=== PATIENT | male | born 1975 | race Two or more races ===

== ENCOUNTER 2024-07-21 13:01 | Emergency (ER) | payer MEDICAID, OTHER ==
--- NOTE | 2024-07-21 13:51 | ED.PDOC ---
History of Present Illness HPI Comments Primo Chu is a 49-year-old male patient who presents to the ED with chief complaint of blurry vision from right eye and right-sided facial pain, associated with right sided facial edema, dizziness, nausea, chills and weak king maker on right hand which started approximately four days ago patient denies any recent trauma or any dental procedures (last dental procedure was approximately two years ago), he does have poor dental hygiene probably secondary to history of methamphetamine abuse. Denies palpitation, syncope, head trauma, chest pain, dyspnea, vomiting, diarrhea, constipation, bleeding, recent travel, sick contacts and other motor or sensory deficits. 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 Surgical history: Coronary angiography approximately 4-5 years with no intervention. Tooth extraction approximately two years, orchiectomy approximately six years ago Family history: Diabetes and hypertension mother and father. Heart disease in grandmother required open heart surgery. 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 Smokes cigarette disease approximately four cigarettes per day, approximately six pack- year history of smoking) occasionally vapes marijuana. Ex methamphetamine abuse, has stopped approximately six years ago. He currently drinks three beers a day. Allergies: Penicillin Home medication: Nitroglycerin. Does not recall other medication at this time Chief Complaint: Face pain Time Seen by MD: 13:31 Allergies: Coded Allergies: Penicillins (Unverified Allergy, Unknown, 07/21/24) Home Meds Active Scripts Ibuprofen Micronized (Ibuprofen) 400 Mg Tab, 400 MG PO TID PRN for 15 Days, #45 TAB Prov:SHAGGY BLANCAS RESIDENT 07/21/24 Amoxicillin & Pot Clavulanate (AUGMENTIN TABLET) 875 Mg Tb, 875 MG PO Q12HR for 10 Days, #20 TAB Prov:SHAGGY BLANCAS RESIDENT 07/21/24 Physical Exam General Appearance: Mild Distress, Normal HEENT: Eye Lid (R) (Edema and erythema), Pharynx Normal, TMs Normal Neck: Full Range of Motion, Non-Tender, Normal, Normal Inspection Respiratory: Chest Non-Tender, Lungs Clear, No Accessory Muscle Use, No Respiratory Distress, Normal Breath Sounds Cardiovascular: No Edema, No JVD, No Murmur, No Gallop, Normal Peripheral Pulses, Regular Rate/Rhythm Breast Exam: Deferred Gastrointestinal: No Organomegaly, Non Tender, No Pulsatile Mass, Normal Bowel Sounds, Soft Genitalia: Deferred Pelvic: Deferred Rectal: Deferred Extremities: No calf tenderness, Normal capillary refill, Normal inspection, Normal range of motion, Non-tender, No pedal edema, Other (Milder weaker king maker on right hand) Neurologic: Alert, bell maker II-XII nml as Tested, No Motor Deficits, Normal Affect, Normal Mood, No Sensory Deficits Cerebellar Function: Normal Reflexes: Normal Skin: Dry, Normal Color, Warm Lymphatic: No Adenopathy Was a procedure done? Was a procedure done?: No EKG EKG : Comments Sinus rhythm at 75 beats per minute flattened T-waves in lateral leads Differential Dx Considerations may include: Periorbital abscess, stroke, KS, arrhythmias, cellulitis, glaucoma, polysubstance abuse X-Ray, Labs, Meds, VS Vital Signs Date Time Temp Pulse Resp B/P (MAP) Pulse Ox O2 Delivery O2 Flow Rate FiO2 07/21/24 15:42 99.5 106 16 132/98 (109) 98 99.5 07/21/24 15:42 106 18 98 Room Air 07/21/24 13:34 14 97 Room Air* 0 21 Lab Test 07/21/24 13:48 Range/Units White Blood Count 9.7 4.4-10.8 10^3/uL Red Blood Count 4.75 4.5-5.90 10^6/uL Hemoglobin 12.4 L 13.5-17.5 g/dL Hematocrit 37.9 L 41.0-53.0 % Mean Corpuscular Volume 79.8 L 80.0-100.0 fL Mean Corpuscular Hemoglobin 26.1 L 28.0-32.0 pg Mean Corpuscular Hemoglobin Concent 32.7 32.0-36.0 g/dL Red Cell Distribution Width 17.7 H 11.8-14.3 % Platelet Count 216 140-450 10^3/uL Mean Platelet Volume 9.0 6.9-10.8 fL Neutrophils (%) (Auto) 84.3 H 37.0-80.0 % Lymphocytes (%) (Auto) 9.1 L 10.0-50.0 % Monocytes (%) (Auto) 5.0 0.0-12.0 % Eosinophils (%) (Auto) 0.9 0.0-7.0 % Basophils (%) (Auto) 0.7 0.0-2.0 % Neutrophils # (Auto) 8.2 1.6-8.6 10 ^3/uL Lymphocytes # (Auto) 0.9 0.4-5.4 10 ^3/uL Monocytes # (Auto) 0.5 0-1.3 10 ^3/uL Eosinophils # (Auto) 0.1 0-0.8 10 ^3/uL Basophils # (Auto) 0.1 0-0.2 10 ^3/uL Nucleated Red Blood Cells 0.1 % Prothrombin Time 11.0 9.3-11.8 sec Prothrombin Time INR 1.04 0.9-1.15 Activated Partial Thromboplast Time 30.5 24.5-34.5 SEC Sodium Level 138 136-145 mmol/L Potassium Level 3.6 3.5-5.1 mmol/L Chloride Level 104 98-107 mmol/L Carbon Dioxide Level 25 20-31 mmol/L Anion Gap 9 5-15 Blood Urea Nitrogen 11 9-23 mg/dL Creatinine 0.96 0.700-1.30 mg/dL Glomerular Filtration Rate Calc 98 >90 mL/min BUN/Creatinine Ratio 11.5 10.0-20.0 Serum Glucose 100 74-106 mg/dL Lactic Acid Level 1.3 0.4-2.0 mmol/L Calcium Level 10.1 8.7-10.4 mg/dL Phosphorus Level 2.5 2.4-5.1 mg/dL Magnesium Level 2.3 1.6-2.6 mg/dL Total Bilirubin 0.7 0.2-1.0 mg/dL Aspartate Amino Transferase (AST) 13 13-40 U/L Alanine Aminotransferase (ALT) 15 7-40 U/L Alkaline Phosphatase 95 46-116 U/L Total Protein 8.5 H 5.7-8.2 g/dL Albumin 4.9 H 3.2-4.8 g/dL Thyroid Stimulating Hormone (TSH) 4.56 0.55-4.78 uIU/mL Time of 1ST Reevaluation: 17:08 Reevaluation 1ST: Unchanged Patient Education/Counseling: Diagnosis, Treatment, Prognosis, Need For Follow Up (Dentist) Family Education/Counseling: Diagnosis, Treatment, Prognosis, Need For Follow Up (Dentist) Departure 1 Departure Time of Disposition: 17:09 Impression: Primary Impression: Periapical abscess Additional Impression: Cellulitis Disposition: HOME / SELF CARE / HOMELESS Condition: Stable Additional Instructions: Reviewed vital signs, laboratory workup, head and maxillofacial CT. Imaging shows periapical abscess (2.1x0.8 cm) in maxillary area associated with cellulitis. No periorbital abscess. We will indicate p.o. antibiotics (amoxicillin clavulanic acid 850 mg p.o. b.i.d. for 10 days) and anti- inflammatory medication (ibuprofen). Patient does not have dentist in the [facility], last time he saw a dentist was two years ago. Have discussed importance of reaching out to dentist, patient has Medicare and he will call to make an appointment to drain abscess. Patient hemodynamically stable, asymptomatic, in condition to be discharged home. Was granted under optimal medical therapy, gave her advice on healthy lifestyle habits, and follow up with PCP and dentist as outpatient for eventual drainage of abscess. e-Prescriptions Ibuprofen Micronized (Ibuprofen) 400 Mg Tab 400 MG PO TID PRN for 15 Days, #45 TAB Prov: SHAGGY BLANCAS RESIDENT 07/21/24 Amoxicillin & Pot Clavulanate (AUGMENTIN TABLET) 875 Mg Tb 875 MG PO Q12HR for 10 Days, #20 TAB Prov: SHAGGY BLANCAS RESIDENT 07/21/24 Critical Care Note Critical Care Time?: No Stability Stability form required: No Heart Score Heart Score: Heart Score Response (Comments) Value History N/A 0 EKG N/A 0 Age N/A 0 Risk Factors N/A 0 Troponin N/A 0 Total 0 SHAGGY BLANCAS RESIDENT Jul 21, 2024 13:51
[2024-07-21 14:25] LABS: Eosinophils # (auto) 0.1 10 ^3/uL (0-0.8); Eosinophils % (auto) 0.9 % (0.0-7.0); Lymphocytes # (auto) 0.9 10 ^3/uL (0.4-5.4); Monocytes # (auto) 0.5 10 ^3/uL (0-1.3); Neutrophils # (auto) 8.2 10 ^3/uL (1.6-8.6)
[2024-07-21 14:29] LABS: Basophils # (auto) 0.1 10 ^3/uL (0-0.2); Basophils % (auto) 0.7 % (0.0-2.0); Hematocrit 37.9 % (41.0-53.0); Hemoglobin 12.4 g/dL (13.5-17.5); Lymphocytes % (auto) 9.1 % (10.0-50.0); Mean Corpuscular Hemoglobin 26.1 pg (28.0-32.0); Mean Corpuscular Hgb Conc. 32.7 g/dL (32.0-36.0); Mean Corpuscular Volume 79.8 fL (80.0-100.0); Neutrophils % (auto) 84.3 % (37.0-80.0); Nucleated Red Blood Cells % 0.1 %; Platelet Count (auto) 216 10^3/uL (140-450); Red Blood Cells 4.75 10^6/uL (4.5-5.90); Red Cell Distribution Width 17.7 % (11.8-14.3); White Blood Cell 9.7 10^3/uL (4.4-10.8)
[2024-07-21 14:36] LABS: INR 1.04 (0.9-1.15); Partial Thromboplastin Time 30.5 SEC (24.5-34.5)
[2024-07-21 14:39] LABS: Alanine Aminotransferase 15 U/L (7-40); Alkaline Phosphatase 95 U/L (46-116); Anion Gap 9 (5-15); BUN/Creatinine Ratio 11.5 (10.0-20.0); Bilirubin, Total 0.7 mg/dL (0.2-1.0); Blood Urea Nitrogen 11 mg/dL (9-23); Calcium 10.1 mg/dL (8.7-10.4); Carbon Dioxide 25 mmol/L (20-31); Chloride 104 mmol/L (98-107); Glucose 100 mg/dL (74-106); Magnesium 2.3 mg/dL (1.6-2.6); Phosphorus 2.5 mg/dL (2.4-5.1); Potassium 3.6 mmol/L (3.5-5.1); Sodium 138 mmol/L (136-145)
[2024-07-21 14:54] LABS: Albumin 4.9 g/dL (3.2-4.8); Aspartate Aminotransferase 13 U/L (13-40); Total Protein 8.5 g/dL (5.7-8.2)
[2024-07-21 15:42] VITALS: BP 132/98; PULSE 106; RESP 18; TEMP 99.5; O2SAT 98
[2024-07-21] MEDS: IOHEXOL 300 MG/ML 100ML BOTTLE IJ ONE (15:54)
--- NOTE | 2024-07-21 16:08 | DVH ---
EXAM: CT HEAD WITHOUT CONTRAST HISTORY: blurry vision right sided weakness COMPARISON: None TECHNIQUE: Axial images of the head were obtained and reformatted in coronal and sagittal planes. All CT scans at this medical facility are performed using dose modulation techniques as appropriate t o a performed exam including the following: Automated exposure control was utilized; adjustment of th e MA and/or KV according to patient size; and use of iterative reconstruction technique. CT Dose: CTDI volume is 55 mGy. Dose-length product is 978 mGy*cm FINDINGS: There is no evidence of acute intracranial hemorrhage, mass, mass effect midline shift. There is no h ydrocephalus or extra-axial fluid collection. Zeng-white matter differentiation is maintained. There is mucosal thickening in the maxillary sinuses. There is opacification of the left mastoid air cells. The calvarium is intact. IMPRESSION: 1. No acute intracranial process. HS:Y
--- NOTE | 2024-07-21 16:18 | DVH ---
CT MAXILLOFACIAL WITH INDICATION: Rule out peroorbital abscess EXAM DATE: 07/21/2024 03:51 PM COMPARISON: None RADIATION DOSE: CTDIvol: 66.97 mGy, DLP: 2623.35 mGy*cm PROCEDURE: Using the CT scanner, contiguous noncontrast scans were obtained from above the orbital ri ms to below the mandible. Coronal and sagittal reformatted images were then generated. All CT scans at this medical facility are performed using dose modulation techniques as appropriate t o a performed exam including the following: Automated exposure control was utilized; adjustment of th e MA and/or KV according to patient size; and use of iterative reconstruction technique. FINDINGS: 0.8 x 0.9 x 2.1 cm right maxillary periosteal abscess. The facial bones, including the orbi ts and paranasal sinuses are otherwise intact without evidence of fracture. Bilateral maxillary sinus and ethmoid sinus mucosa thickening. The mastoid air cells and middle ear cavities are normally aer ated. The orbital contents are normal. Right malar and periorbital soft tissue thickening and edema. IMPRESSION: 0.8 x 0.9 x 2.1 cm right maxillary periosteal abscess likely due to a periapical abscess from the adj acent tooth. Right malar and periorbital soft tissue thickening and edema likely cellulitis.
[2024-07-21] MEDS ORDERED: AUG875T PO (17:08)
[2024-07-21] MEDS ORDERED: IBUP1TAB4 PO (17:08)
[2024-07-21] MEDS: AMOXICILLIN/CLAVUL 875 MG TAB PO ONE (17:28)
[2024-07-21] MEDS ORDERED: AMOXICILLIN/CLAVUL 875 MG TAB PO SCH (22:00)
== END 2024-07-21 17:26 | disposition home or self-care (01) ==
LOC: ER 13:05
DX: K04.7 Periapical abscess without sinus (principal); L03.90 Cellulitis, unspecified; I10 Essential (primary) hypertension; F17.210 Nicotine dependence, cigarettes, uncomplicated; E78.5 Hyperlipidemia, unspecified; R51.9 Headache, unspecified; R11.0 Nausea; R42 Dizziness and giddiness; Z88.0 Allergy status to penicillin; Z98.890 Other specified postprocedural states; Z90.79 Acquired absence of other genital organ(s)
CPT/HCPCS: 36415; 70450; 70487; 80053; 83605; 83735; 84100; 84443; 85025; 85610; 85730; 87040; 99285; Q9967